=== PATIENT | female | born 1980 | race Hispanic/Latino ===

== ENCOUNTER 2019-02-23 13:12 | Inpatient (IN) | payer BC ==
[~2019-02-23] VITALS: Ht 172.7 cm; Wt 102.1 kg
[~2019-02-23 13:12] MED LIST: ESOM40SU PO; FURO-151 PO; LABE200T5 PO; POTA15TA11 PO; PREN1CAP34 PO
[2019-02-23 14:17] LABS: BASOPHILS % (AUTO) 0.9 % (0.0-5.0); EOSINOPHILS % (AUTO) 0.5 % (0.0-8.0); LYMPHOCYTES % (AUTO) 17.6 % (21.0-51.0); MEAN CORPUSCULAR HEMOGLOBIN 29.1 pg (27.0-33.0); MEAN CORPUSCULAR HGB CONC 34.1 g/dL (32.0-36.0); MEAN CORPUSCULAR VOLUME 85.2 fL (79-99); MONOCYTES % (AUTO) 5.7 % (3.0-13.0); NEUTROPHILS % (AUTO) 75.3 % (40.0-77.0); PLATELET COUNT (AUTO) 335 K/uL (130-400); RED BLOOD CELL COUNT(AUTO) 4.57 MIL/uL (4.00-5.50); RED CELL DISTRIBUTION WIDTH 13.6 % (11.0-15.5); WHITE BLOOD COUNT (AUTO) 9.4 K/uL (4.8-10.8)
[2019-02-23 14:32] LABS: POTASSIUM 3.9 mmol/L (3.5-5.1)
[2019-02-23 14:37] LABS: ALBUMIN 3.6 g/dL (3.5-5.0); BILIRUBIN,TOTAL 0.6 mg/dL (0.2-1.0); TOTAL PROTEIN, SERUM 7.7 g/dL (6.0-8.3)
[2019-02-23 14:37] LABS: APPEARANCE,URINE Clear (CLEAR); BILIRUBIN,URINE Negative (NEGATIVE); COLOR,URINE Yellow (YELLOW); GLUCOSE, URINE (UA) Negative (NEGATIVE); KETONES,URINE Negative (NEGATIVE); LEUKOCYTE ESTERASE ,URINE Negative (NEGATIVE); NITRATE,URINE Negative (NEGATIVE); OCCULT BLOOD,URINE Negative (NEGATIVE); PROTEIN,URINE Negative (NEGATIVE); UROBILINOGEN,URINE 0.2 mg/dL (0.2-1.0)
[2019-02-23] MEDS ORDERED: LABETALOL 20 MG/4 ML DISP.SYRIN IV ONE ×2 (14:58→16:01)
[2019-02-23] MEDS ORDERED: HYDRALAZINE HCL 20 MG/ML VIAL ONE (16:46)
[2019-02-23] MEDS ORDERED: ONDANSETRON HCL 4 MG/2 ML VIAL ONE (18:49)
[2019-02-23] MEDS ORDERED: MORPHINE SULFATE 2 MG/ML 1ML SYG ONE (18:49)
[2019-02-23] MEDS ORDERED: MAGNESIUM SULFATE 1,000 ML IV ONE (22:02)
[2019-02-23] MEDS ORDERED: LACTATED RINGERS 1000ML 1,000 ML IV ONE (22:02)
[2019-02-23] MEDS ORDERED: MAGNESIUM 4GM PREMIX 100ML 100 ML IV ONE (22:02)
[2019-02-23 22:07] VITALS: BP 135/74
[2019-02-23 22:19] LABS: INR 1.02 (0.85-1.15); PARTIAL THROMBOPLASTIN TIME 31.3 SEC (26.3-35.5); PROTHROMBIN TIME 10.7 SEC (9.6-11.6)
[2019-02-23] MEDS ORDERED: MAGNESIUM SULFATE 1,000 ML IV PRN (22:49)
[2019-02-23] MEDS ORDERED: BENA10TA12 PO (22:52)
[2019-02-23] MEDS ORDERED: MAGNESIUM 4GM PREMIX 100ML 100 ML IV PRN ×2 (23:00)
[2019-02-23] MEDS ORDERED: ACETAMINOPHEN EXTRA STRENGTH 500 MG TABLET PO PRN (23:00)
[2019-02-23] MEDS ORDERED: CALCIUM GLUCONATE 1 GM/10 ML VIAL IV PRN (23:00)
[2019-02-23] MEDS ORDERED: ACETAMINOPHEN EXTRA STRENGTH 500 MG TABLET ONE (23:25)
[2019-02-24] MEDS ORDERED: ACETAMINOPHEN-CODEINE 300/30MG TAB ONE (16:02)
[2019-02-24] MEDS ORDERED: ACETAMINOPHEN-CODEINE 300/30MG TAB PO ONE (17:10)
[2019-02-25] VITALS (7 sets, daily range): BP systolic 109–148; BP diastolic 65–85
[2019-02-25] MEDS: LACTATED RINGERS 1000ML 1,000 ML IV SCH (00:34)
--- NOTE | 2019-02-25 08:15 | NUR ---
PHYSICIAN ROUNDING DR GONZALEZ AT BEDSIDE TO ASSESS PATIENT AND DISCUSS PLAN OF CARE. NEW ORDERS RECEIVED AND WILL BE CARRIED OUT
--- NOTE | 2019-02-25 08:42 | NUR ---
BENCHMARK CONSULT [facility] [employer] PAGED AND NOTIFIED OF PATIENT CONSULT. SPOKE WITH ABY AUSTIN NP. STATED WOULD BE BY TO SEE PATIENT.
--- NOTE | 2019-02-25 09:00 | NUR ---
PATIENT TRANSFER PATIENT TRANSFERRED TO [facility] BY BED. IV SALINE LOCKED AND DÍAZ DISCONTINUED. PATIENT TOLERATED WELL. PATIENT INSTRUCTED TO CALL FOR ASSISTANCE WHEN WANTING TO AMBULATE TO RESTROOM TO VOID, PATIENT VERBALIZED UNDERSTANDING. NO COMPLAINTS AT THIS TIME. WILL CONTINUE TO MONITOR Addendum: 02/25/19 at 1935 by BRIAN SAM RN RN MAG SULFATE MAGNESIUM SULFATE DISCONTINUED AT THIS TIME
[2019-02-25] MEDS ORDERED: MIDAZOLAM HCL 1 MG/ML 2ML VIAL ONE (10:25)
[2019-02-25] MEDS ORDERED: OXYTOCIN 10 USP UNITS/ML ONE (10:28)
--- NOTE | 2019-02-25 12:05 | NUR ---
PHYSICIAN ROUNDING DR. OCHOA AND SUSANNA WEATHERS NP AT BEDSIDE TO ASSESS PATIENT AND DISCUSS PLAN OF CARE. BENCHMARK TO PLACE ORDERS FOR BLOOD PRESSURE MANAGEMENT.
[2019-02-25] MEDS: BENAZEPRIL HCL 10 MG TABLET PO SCH (18:18)
[2019-02-25] MEDS: LABETALOL HCL 100 MG TABLET PO SCH (21:37)
[2019-02-26 03:50] VITALS: BP 105/58
[2019-02-26] MEDS: LACTATED RINGERS 1000ML 1,000 ML IV SCH (04:09)
[2019-02-26 05:55] LABS: THYROID STIMULATING HORMONE 2.71 uIU/mL (0.36-3.74)
[2019-02-26 07:38] VITALS: BP 103/58
--- NOTE | 2019-02-26 07:45 | NUR ---
PHYSICIAN ROUNDED DR GONZALEZ AT BEDSIDE TO ASSESS PATIENT AND DISCUSS PLAN OF CARE. PATIENT CLEARED FOR DISCHARGE FROM DR GONZALEZ STAND POINT.
--- NOTE | 2019-02-26 08:35 | NUR ---
BENCHMARK ROUNDING SUSANNA WEATHERS NP AT BEDSIDE TO ASSESS PATIENT. AWARE OF CURRENT BLOOD PRESSURES. PLAN OF CARE DISCUSSED WITH PATIENT. ORDERS RECEIVED TO CONTINUE BLOOD PRESSURE MEDICATIONS ORDERED PENDING TOLERATING IN HALLWAY.
[2019-02-26] MEDS ORDERED: BENAZEPRIL HCL 10 MG TABLET PO SCH (09:00)
[2019-02-26] MEDS: BENAZEPRIL HCL 10 MG TABLET PO SCH (09:05)
[2019-02-26] MEDS: LABETALOL HCL 100 MG TABLET PO SCH (09:05)
--- NOTE | 2019-02-26 10:00 | NUR ---
PATIENT AMBULATING PATIENT AMBULATED SUSANNA WEATHERS NP ADVISED AFTER BLOOD PRESSURE MEDICATION ADMINISTRATION. PATIENT TOLERATED WELL.
[2019-02-26 12:00] VITALS: BP 117/65
--- NOTE | 2019-02-26 13:30 | NUR ---
DISCHARGE PATIENT LEFT UNIT VIA WHEELCHAIR, ACCOMPANIED BY SPOUSE. DENIED PAIN, DIZZINESS, OR LIGHTHEADEDNESS. PATIENT TRANSPORTED BY PERSONAL VEHICLE.
== END 2019-02-26 13:30 | disposition home or self-care (01) | DRG 776 ==
LOC: EDH 13:12 → WSH 21:29 → OBSVTOIN 21:29 → WSH 02-25 09:00
PROVIDERS: ADMIT Specialist; ATTEND Specialist
DX: O16.5 Unspecified maternal hypertension, complicating the puerperium (principal); I16.0 Hypertensive urgency; O99.215 Obesity complicating the puerperium; Z82.49 Family history of ischemic heart disease and other diseases of the circulatory system; Z83.3 Family history of diabetes mellitus
CPT/HCPCS: 36415; 70450; 71046; 80053; 80061; 81003; 82550; 84439; 84443; 84484; 84550; 85025; 85378; 85384; 85610; 85730; 93005; G0378; J0360; J2250; J2405; J2590; J3475; J7120

== ENCOUNTER 2020-09-28 11:00 | Observation (INO) | payer BC ==
[~2020-09-28] VITALS: Ht 172.7 cm; Wt 110.2 kg
[2020-09-28] MEDS ORDERED: LACTATED RINGERS 1000ML 1,000 ML IV PRN (11:30)
[2020-09-28 11:59] LABS: HEMATOCRIT 34.4 % (36-48); MEAN CORPUSCULAR HEMOGLOBIN 29.6 pg (27.0-33.0); MEAN CORPUSCULAR HGB CONC 33.7 g/dL (32.0-36.0); MEAN CORPUSCULAR VOLUME 87.8 fL (79-99); RED BLOOD CELL COUNT(AUTO) 3.92 MIL/uL (4.00-5.50); WHITE BLOOD COUNT (AUTO) 8.5 K/uL (4.8-10.8)
[2020-09-28 12:02] LABS: APPEARANCE,URINE CLOUDY (CLEAR); BILIRUBIN,URINE SMALL (NEGATIVE); COLOR,URINE YELLOW (YELLOW); GLUCOSE, URINE (UA) NEGATIVE (NEGATIVE); KETONES,URINE NEGATIVE (NEGATIVE); LEUKOCYTE ESTERASE ,URINE SMALL (NEGATIVE); NITRATE,URINE NEGATIVE (NEGATIVE); OCCULT BLOOD,URINE NEGATIVE (NEGATIVE); PH,URINE 5.5 (5.0-8.0); PROTEIN,URINE TRACE mg/dL (NEGATIVE)
[2020-09-28] MEDS ORDERED: LABETALOL HCL 100 MG TABLET ONE (12:25)
[2020-09-28 12:34] LABS: BACTERIA,URINE Few /HPF (None Seen); RBC,URINE 0-1 /HPF (0-1); SQUAMOUS EPITHELIAL CELL,UR Many /HPF (0-2)
[2020-09-28] MEDS: CELESTONE SOLUSPAN 6 MG/ML 5ML VIAL IM SCH (14:37)
[2020-09-28 15:30] VITALS: BP 147/89
[2020-09-28 15:34] LABS: CREATININE 0.9 mg/dL (0.5-1.5); POTASSIUM 3.9 mmol/L (3.5-5.1)
[2020-09-28 15:35] LABS: INR 0.91 (0.85-1.15)
[2020-09-28 15:37] LABS: PARTIAL THROMBOPLASTIN TIME 24.3 SEC (26.3-35.5)
[2020-09-28 15:38] LABS: ALBUMIN 2.5 g/dL (3.5-5.0); BILIRUBIN,TOTAL 0.3 mg/dL (0.2-1.0); TOTAL PROTEIN, SERUM 6.6 g/dL (6.0-8.3); URIC ACID 4.9 mg/dL (2.6-7.2)
[2020-09-28] MEDS ORDERED: AEC81 PO (15:39)
[2020-09-28] MEDS ORDERED: LABE200T5 PO (15:41)
[2020-09-28] MEDS ORDERED: ESOM40CA PO (15:41)
[2020-09-28 19:05] VITALS: BP 149/93
[2020-09-28] MEDS ORDERED: LABETALOL HCL 200 MG TABLET PO SCH (21:00)
[2020-09-28] MEDS: LABETALOL HCL 200 MG TABLET PO SCH (21:21)
[2020-09-28 22:56] VITALS: BP 155/91
[2020-09-29] VITALS (10 sets, daily range): BP systolic 128–154; BP diastolic 64–99
[2020-09-29 04:46] LABS: RAPID PLASMA REAGIN NONREACTIVE (NONREACTIVE)
[2020-09-29 07:17] LABS: HEPATITIS Bs ANTIGEN SCREEN P Negative (Negative)
[2020-09-29] MEDS ORDERED: CEFTRIAXONE 1G VIAL IVP SCH (08:30)
[2020-09-29] MEDS: LABETALOL HCL 200 MG TABLET PO SCH ×3 (09:17→20:49)
[2020-09-29] MEDS: ASPIRIN 81MG CHEW TAB PO SCH (09:17)
[2020-09-29 12:49] LABS: CREATININE,SERUM FOR CRCL 0.9 mg/dL (0.6-1.3)
[2020-09-29] MEDS: CELESTONE SOLUSPAN 6 MG/ML 5ML VIAL IM SCH (14:43)
[2020-09-30 03:03] VITALS: BP 148/93
[2020-09-30 07:11] LABS: COLLECTION PERIOD,URINE 24 HR
[2020-09-30 07:12] LABS: TOTAL VOLUME 24HRS,URINE 1425 mL; TPROTEIN TIMED,URINE 11 mg/dL; TPROTEIN U,24HR CALC 157 mg/24HR (0-165)
[2020-09-30 07:15] VITALS: BP 145/83
[2020-09-30] MEDS: ASPIRIN 81MG CHEW TAB PO SCH (08:14)
[2020-09-30] MEDS: LABETALOL HCL 200 MG TABLET PO SCH (08:16)
== END 2020-09-30 10:25 | disposition home or self-care (01) ==
LOC: LDH 11:00 → WSH 15:30 → EDSTATUS 11-07 10:58
PROVIDERS: ADMIT Specialist; ATTEND Specialist
DX: O26.893 Other specified pregnancy related conditions, third trimester (principal); R51.9 Headache, unspecified; O24.419 Gestational diabetes mellitus in pregnancy, unspecified control; O34.219 Maternal care for unspecified type scar from previous cesarean delivery; O10.913 Unspecified pre-existing hypertension complicating pregnancy, third trimester; O09.523 Supervision of elderly multigravida, third trimester; Z3A.34 34 weeks gestation of pregnancy
CPT/HCPCS: 36415; 59025 ×2; 80053; 81001; 82575; 82948 ×6; 84156; 84550; 85027; 85384; 85610; 85730; 86592; 86701; 86850; 86900; 86901; 87088; 87340; 87390; 96372 ×2; 96374; G0378 ×47; J0696; J0702 ×2

== ENCOUNTER 2020-10-05 13:21 | Inpatient (IN) | payer BC ==
[~2020-10-05] VITALS: Ht 172.7 cm; Wt 112.0 kg
[~2020-10-05 13:21] MED LIST changes: +AEC81 PO; +ESOM40CA PO; -ESOM40SU PO; -FURO-151 PO; -LABE200T5 PO; -POTA15TA11 PO; -PREN1CAP34 PO
[2020-10-05] MEDS ORDERED: NIFEDIPINE ER 30 MG TAB PO SCH (13:37)
[2020-10-05] MEDS: LABETALOL HCL 200 MG TABLET PO SCH ×2 (14:28→21:00)
[2020-10-05 14:33] LABS: BASOPHILS % (AUTO) 0.3 % (0.0-5.0); EOSINOPHILS % (AUTO) 0.7 % (0.0-8.0); HEMATOCRIT 33.2 % (36-48); LYMPHOCYTES % (AUTO) 15.5 % (21.0-51.0); MEAN CORPUSCULAR HEMOGLOBIN 29.2 pg (27.0-33.0); MEAN CORPUSCULAR HGB CONC 33.1 g/dL (32.0-36.0); MEAN CORPUSCULAR VOLUME 88.1 fL (79-99); MONOCYTES % (AUTO) 3.9 % (3.0-13.0); NEUTROPHILS % (AUTO) 78.7 % (40.0-77.0); PLATELET COUNT (AUTO) 294 K/uL (130-400); RED BLOOD CELL COUNT(AUTO) 3.77 MIL/uL (4.00-5.50); RED CELL DISTRIBUTION WIDTH 12.9 % (11.0-15.5); WHITE BLOOD COUNT (AUTO) 8.9 K/uL (4.8-10.8)
[2020-10-05 14:34] LABS: BILIRUBIN,URINE Small (NEGATIVE); COLOR,URINE Dark Yellow (YELLOW); GLUCOSE, URINE (UA) Negative (NEGATIVE); KETONES,URINE Trace mg/dL (NEGATIVE); LEUKOCYTE ESTERASE ,URINE Moderate (NEGATIVE); NITRATE,URINE Negative (NEGATIVE); OCCULT BLOOD,URINE Negative (NEGATIVE); PH,URINE 5.5 (5.0-8.0); PROTEIN,URINE POS 1+ mg/dL (NEGATIVE)
[2020-10-05 14:36] LABS: APPEARANCE,URINE SLIGHTLY CLOUDY (CLEAR)
[2020-10-05 14:48] LABS: CREATININE 0.9 mg/dL (0.5-1.5); POTASSIUM 3.8 mmol/L (3.5-5.1)
[2020-10-05 14:51] LABS: BACTERIA,URINE Few /HPF (None Seen); MUCUS,URINE Moderate LPF (None Seen); RBC,URINE None Seen /HPF (0-1)
[2020-10-05 14:51] LABS: ALBUMIN 2.3 g/dL (3.5-5.0); BILIRUBIN,TOTAL 0.3 mg/dL (0.2-1.0); TOTAL PROTEIN, SERUM 6.5 g/dL (6.0-8.3); URIC ACID 6.2 mg/dL (2.6-7.2)
[2020-10-05 15:02] LABS: INR 0.91 (0.85-1.15)
[2020-10-05 15:04] LABS: PARTIAL THROMBOPLASTIN TIME 23.5 SEC (26.3-35.5)
[2020-10-05] MEDS ORDERED: CALCIUM GLUC 1GM/10ML VIAL IV PRN (16:45)
[2020-10-05] MEDS ORDERED: MAGNESIUM SULFATE 40GM/1000ML 1,000 ML IV PRN (16:45)
[2020-10-05] MEDS ORDERED: LACTATED RINGERS 1000ML 1,000 ML IV SCH (16:45)
[2020-10-05] MEDS ORDERED: MAGNESIUM 4GM PREMIX 100ML 100 ML IV PRN (16:45)
[2020-10-05] MEDS ORDERED: MAGNESIUM SULFATE 40GM/1000ML 1,000 ML IV ONE (16:51)
[2020-10-05] MEDS ORDERED: MAGNESIUM 4GM PREMIX 100ML 100 ML IV ONE (16:55)
[2020-10-05] MEDS: HYDRALAZINE 20MG/ML VIAL IV PRN (17:06)
[2020-10-05] MEDS ORDERED: CEFAZOLIN SODIUM 100 GM IV ONE (18:00)
[2020-10-05 18:16] VITALS: BP 126/68
[2020-10-05] MEDS ORDERED: [UNRECOGNIZED DRUG - CODE] INJ (18:19)
[2020-10-05] MEDS ORDERED: PREN1TAB80 PO (18:19)
[2020-10-05] MEDS ORDERED: AEC81 PO (18:20)
[2020-10-05] MEDS ORDERED: NACL NASAL SPRAY 120 SPRAY/BOTTLE NS PRN (21:15)
[2020-10-05] MEDS: GUAIFENESIN-CODEINE 5 ML SYRUP PO PRN (22:08)
[2020-10-06] MEDS: HYDRALAZINE 20MG/ML VIAL IV PRN ×3 (01:40→21:05)
[2020-10-06 06:31] LABS: RAPID PLASMA REAGIN NONREACTIVE (NONREACTIVE)
[2020-10-06] MEDS ORDERED: CEFAZOLIN SODIUM 1 GM VIAL IVP PRN (07:00)
[2020-10-06] MEDS ORDERED: CEFAZOLIN SODIUM 100 GM IV ONE (07:00)
[2020-10-06 07:19] LABS: HEPATITIS Bs ANTIGEN SCREEN P Negative (Negative)
[2020-10-06] MEDS ORDERED: OXYTOCIN-LR 20 UNITS/1000 ML 1,000 ML IV SCH (07:30)
[2020-10-06] MEDS ORDERED: CEFAZOLIN SODIUM 1 GM VIAL ONE (07:55)
[2020-10-06] MEDS ORDERED: MISOPROSTOL 200 MCG TABLET ONE (08:09)
[2020-10-06] MEDS ORDERED: MORPHINE PF 100MG/10ML AMP IV ONE (08:51)
[2020-10-06] MEDS ORDERED: FENTANYL CITRATE PF 50 MCG/1 ML 2ML VIAL ONE (08:51)
[2020-10-06] MEDS ORDERED: ONDANSETRON 4MG INJ ONE (09:17)
[2020-10-06] MEDS ORDERED: MIDAZOLAM HCL 1 MG/ML 2ML VIAL ONE (09:46)
[2020-10-06] MEDS ORDERED: ONDANSETRON 4MG INJ IVP PRN (10:30)
[2020-10-06] MEDS ORDERED: EPHEDRINE SULFATE 50 MG/ML AMPULE IVP PRN (10:30)
[2020-10-06] MEDS ORDERED: DiphenhydrAMINE HCL 50 MG/ML VIAL IVP PRN (10:30)
[2020-10-06] MEDS ORDERED: NALOXONE HCL 0.4 MG/1 ML ML IVP PRN (10:30)
[2020-10-06] MEDS ORDERED: LORATADINE 10 MG TABLET PO PRN (10:30)
[2020-10-06] MEDS ORDERED: 0.9%NACL 10ML VIAL IVP PRN (11:00)
[2020-10-06] MEDS ORDERED: MEPERIDINE-PF 75 MG/ML SYG IM PRN (11:00)
[2020-10-06] MEDS ORDERED: MAGNESIUM SULFATE 40GM/1000ML 1,000 ML IV PRN (11:00)
[2020-10-06] MEDS ORDERED: PROMETHAZINE HCL 25 MG/ML 1ML AMPULE IM PRN (11:00)
[2020-10-06] MEDS ORDERED: DEXTROSE 5 %-0.45 % NACL 1,000 ML IV PRN (11:00)
[2020-10-06] MEDS ORDERED: LACTATED RINGERS 1000ML 1,000 ML IV SCH (11:00)
[2020-10-06] MEDS ORDERED: MISOPROSTOL 200 MCG TABLET VG SCH (19:15)
[2020-10-06] MEDS ORDERED: OXYTOCIN 10 USP UNITS/ML ONE (19:16)
[2020-10-06] MEDS ORDERED: OXYTOCIN 10 USP UNITS/ML IV SCH (19:30)
[2020-10-06] MEDS: GUAIFENESIN-CODEINE 5 ML SYRUP PO PRN (21:31)
[2020-10-07 06:21] LABS: HEMATOCRIT 32.6 % (36-48); MEAN CORPUSCULAR HEMOGLOBIN 28.6 pg (27.0-33.0); MEAN CORPUSCULAR HGB CONC 33.1 g/dL (32.0-36.0); MEAN CORPUSCULAR VOLUME 86.5 fL (79-99); RED BLOOD CELL COUNT(AUTO) 3.77 MIL/uL (4.00-5.50); RED CELL DISTRIBUTION WIDTH 13.2 % (11.0-15.5); WHITE BLOOD COUNT (AUTO) 11.6 K/uL (4.8-10.8)
[2020-10-07] MEDS: LABETALOL HCL 200 MG TABLET PO SCH ×3 (08:48→21:21)
[2020-10-07] MEDS: HYDRALAZINE 20MG/ML VIAL IV PRN (10:21)
[2020-10-07] MEDS: ACETAMINOPHEN WITH CODEINE 1 TAB TAB PO PRN (10:42)
[2020-10-07] MEDS ORDERED: IBUPROFEN 800 MG TAB PO SCH (11:00)
[2020-10-07 12:57] VITALS: BP 150/92
[2020-10-07 16:15] VITALS: BP 117/62
[2020-10-07] MEDS ORDERED: ACETAMINOPHEN WITH CODEINE 1 TAB TAB PO PRN (18:45)
[2020-10-07] MEDS ORDERED: BISACODYL 10 MG SUPP.RECT RC PRN (18:45)
[2020-10-07] MEDS ORDERED: IBUPROFEN 600 MG TABLET PO PRN (18:45)
[2020-10-07] MEDS ORDERED: HYDROCODONE/ACETAMINOPHEN 5/325 MG TAB PO PRN (18:45)
[2020-10-07] MEDS ORDERED: ACETAMINOPHEN 500 MG TABLET PO PRN (18:45)
[2020-10-07] MEDS ORDERED: LANOLIN 30GM OINTMENT TP PRN (18:45)
[2020-10-07] MEDS: GUAIFENESIN-CODEINE 5 ML SYRUP PO PRN (18:50)
[2020-10-07] MEDS: DIPH,PERTUSS(ACELL),TET VAC/PF 0.5 ML VIAL IM SCH (19:10)
[2020-10-07 19:33] VITALS: BP 147/96
[2020-10-07] MEDS: DOCUSATE SODIUM 100 MG CAP PO SCH (21:20)
[2020-10-07 23:18] VITALS: BP 139/78
[2020-10-08] MEDS: ACETAMINOPHEN WITH CODEINE 1 TAB TAB PO PRN (01:28)
[2020-10-08 03:06] VITALS: BP 127/71
[2020-10-08 07:31] VITALS: BP 142/82
[2020-10-08] MEDS: DIPH,PERTUSS(ACELL),TET VAC/PF 0.5 ML VIAL IM SCH (08:45)
[2020-10-08] MEDS: DOCUSATE SODIUM 100 MG CAP PO SCH ×2 (09:00→21:24)
[2020-10-08] MEDS: SIMETHICONE 80 MG TAB.CHEW PO PRN (09:00)
[2020-10-08] MEDS: LABETALOL HCL 200 MG TABLET PO SCH ×3 (09:23→21:24)
[2020-10-08 11:58] VITALS: BP 118/55
[2020-10-08 16:17] VITALS: BP 159/88
[2020-10-08 21:22] VITALS: BP 155/83
[2020-10-09] VITALS (8 sets, daily range): BP systolic 133–173; BP diastolic 79–106
[2020-10-09] MEDS: HYDRALAZINE 20MG/ML VIAL IV PRN (04:09)
[2020-10-09] MEDS: ACETAMINOPHEN WITH CODEINE 1 TAB TAB PO PRN (06:57)
[2020-10-09] MEDS: SIMETHICONE 80 MG TAB.CHEW PO PRN (08:42)
[2020-10-09] MEDS: DOCUSATE SODIUM 100 MG CAP PO SCH (08:42)
[2020-10-09] MEDS: LABETALOL HCL 200 MG TABLET PO SCH ×2 (08:43→14:04)
[2020-10-09] MEDS ORDERED: HEPATITIS B VIRUS VACCINE-PF 10 MCG/0.5 ML VIAL IM ONE (10:14)
[2020-10-15] MEDS ORDERED: NIFE-40 PO (11:57)
== END 2020-10-09 15:20 | disposition home or self-care (01) | DRG 788 ==
LOC: LDH 13:21 → OBSVTOIN 13:21 → WSH 10-07 12:55
PROVIDERS: ADMIT Specialist; ATTEND Specialist
PROC: 3E0234Z Introduction of Serum, Toxoid and Vaccine into Muscle, Percutaneous Approach (ICD-10-PCS; 2020-10-06)
PROC: 3E0134Z Introduction of Serum, Toxoid and Vaccine into Subcutaneous Tissue, Percutaneous Approach (ICD-10-PCS; 2020-10-06)
PROC: 10D00Z1 Extraction of Products of Conception, Low, Open Approach (ICD-10-PCS; principal; 2020-10-06 08:55)
DX: O34.211 Maternal care for low transverse scar from previous cesarean delivery (principal); O16.4 Unspecified maternal hypertension, complicating childbirth; Z3A.35 35 weeks gestation of pregnancy; Z37.0 Single live birth; Z20.822 Contact with and (suspected) exposure to COVID-19; O99.214 Obesity complicating childbirth; E66.01 Morbid (severe) obesity due to excess calories; O24.420 Gestational diabetes mellitus in childbirth, diet controlled; O69.81X0 Labor and delivery complicated by cord around neck, without compression, not applicable or unspecified; Z23 Encounter for immunization
CPT/HCPCS: 36415; 59510; 80053; 81001; 82044; 82948; 83735; 84550; 85025; 85027; 85384; 85610; 85730; 86592; 86701; 86850; 86900; 86901; 87088; 87340; 87390; 87635; 90715; 90743; A4344; G0378; J0360; J0690; J1200; J2250; J2274; J2405; J2550; J2590; J3010; J3475; J7120